=== PATIENT | male | born 1980 | race Caucasian/White ===

== ENCOUNTER 2019-04-20 17:57 | Emergency (ER) | payer OTHER ==
--- NOTE | 2019-04-20 18:10 | ED Physician Documentation ---
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 Patient's tetanus is unknown. Patient reports pain and bleeding, but no significant change in range of motion, strength, or sensation to hand. No other injuries. No other improving or worsening factors noted. Review of Systems Skin: reports: Laceration (s) Musculoskeletal: reports: Extremity pain. denies: Joint pain, Extremity swelling, Joint swelling PD PAST MEDICAL HISTORY - Past Medical History Past Medical History: No Musculoskeletal: Chronic back pain - Past Surgical History Past Surgical History: Yes HEENT: Tonsil/Adenoidectomy - Present Medications Home Medications: Ambulatory Orders Medication Instructions Recorded Confirmed No Known Home Medications 04/20/19 04/20/19 - Allergies Allergies/Adverse Reactions: Allergies Allergy/AdvReac Type Severity Reaction Status Date / Time No Known Drug Allergies Allergy Verified 04/20/19 18:06 - Social History Does the pt smoke?: Yes Smoking Status: Current every day smoker Does the pt drink ETOH?: No Does the pt have substance abuse?: No - Immunizations Immunizations are current?: No - POLST Patient has POLST: No PD ED PE NORMAL - Vitals Vital signs reviewed: Yes - General General: Alert and oriented X 3, No acute distress, Well developed/nourished - HEENT HEENT: Atraumatic, Moist mucous membranes - Cardiac Cardiac: Strong equal pulses - Respiratory Respiratory: No respiratory distress - Derm Derm: Normal color, Warm and dry, No rash, Other (Puncture wound to left palm below left index finger with active bleeding, but no retained foreign body other complication noted.) - Extremities Extremities: No deformity, No tenderness to palpate - Neuro Neuro: Alert and oriented X 3, No motor deficit, No sensory deficit - Psych Psych: Normal mood, Normal affect Results - Vitals Vitals: Vital Signs - 24 hr 04/20/19 18:05 Temperature 36.8 C Heart Rate 69 Respiratory 18 Rate Blood Pressure 140/83 H O2 Saturation 99 Oxygen O2 Source Room air Procedures - Laceration (location) Hand left Length in cm: 0.5 Wound type: Curved, Superficial Neurovascular status: Sensory intact, Motor intact, Vascular intact Tendon involvement: Tendon intact Anesthesia: LET Wound Preparation: Irrigated copiously NS Skin layer closure: Dermabond, Steri strips Other: Patient tolerated well, No complications, Neurovascular intact, Dressing applied, Tetanus booster given PD MEDICAL DECISION MAKING - ED course Complexity details: re-evaluated patient, considered differential, d/w patient ED course: Patient presenting with wound to left hand. Do not find evidence of bony abnormalities such as dislocation or fracture. Patient denies any concern for retained foreign body. Do not feel patient requires x-ray at this time. Let placed for anesthetic and wound clean and appropriately repaired. Do not find evidence to underlying structures including tendon. Tetanus updated. Discussed extensively wound care, restrictions, supportive cares with patient. Also discussed return precautions and appropriate follow-up. Patient voiced understanding and is comfortable with discharge plan. Departure - Departure Disposition: 01 Home, Self Care Clinical Impression: Laceration Condition: Good Instructions: ED Laceration All, ED Laceration Hand Follow-Up: your,doctor [Other] - Within 3 Days Comments: Please keep wound clean and dry using running water and soap only to clean. Do not submerge underwater. Do not need to apply anything topically. Please be gentle with her hands so as to not reopen the wound or cause infection. Please keep it covered appropriately to prevent infection. Please follow-up with primary care physician in next 2 to 3 days and return to ED sooner if experience wound opening, wound infection, or have other concerns. Forms: Activity restrictions
[2019-04-20] MEDS ORDERED: LIDOCAINE-EPINEPH-TETRACAINE 3 ML SYRINGE TOP STA (18:13)
[2019-04-20] MEDS ORDERED: TETANUS/DIPHTHERIA/PERTUSSIS 0.5 ML SYRINGE IM ONE (18:13)
[2019-04-20 20:02] VITALS: BP 130/95
== END 2019-04-20 20:00 | disposition home or self-care (01) ==
LOC: ED 17:57
DX: S61.432A Puncture wound without foreign body of left hand, initial encounter (principal); W27.0XXA Contact with workbench tool, initial encounter; Y93.89 Activity, other specified; Y99.0 Civilian activity done for income or pay; Z23 Encounter for immunization; F17.200 Nicotine dependence, unspecified, uncomplicated
CPT/HCPCS: 12001; 90471

== ENCOUNTER 2021-04-04 18:35 | Emergency (ER) | payer SELFPAY ==
[2021-04-04] MEDS ORDERED: MELOXICAM 7.5 MG TABLET PO STA (20:20)
[2021-04-04] MEDS ORDERED: methocarbamoL 500 MG TABLET PO STA (20:20)
--- NOTE | 2021-04-04 20:27 | ED Physician Documentation ---
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 He states that he frequently injures his back. He states over the past 3 to 4 days he has had increasing spasm in his back, worse with movement and standing. Better with rest. Has not taken anything for this. No loss of bowel or bladder control. Occasionally has mild numbness to the left low back. He states that a few weeks ago he stood up and hit his back on a ball valve. No IV drug use. No fevers. No loss of bowel or bladder control. Review of Systems Constitutional: denies: Fever, Chills GI: denies: Vomiting Skin: denies: Rash Musculoskeletal: denies: Neck pain Neurologic: denies: Focal weakness, Seizure, Confused PD PAST MEDICAL HISTORY - Past Medical History Past Medical History: Yes Cardiovascular: None Respiratory: None Neuro: None Endocrine/Autoimmune: None GI: None : None HEENT: None Psych: None Musculoskeletal: Chronic back pain Derm: None - Past Surgical History Past Surgical History: Yes HEENT: Tonsil/Adenoidectomy - Present Medications Home Medications: Ambulatory Orders Medication Instructions Recorded Confirmed Meloxicam [Mobic] 7.5 mg PO BID PRN #20 tablet 04/04/21 methocarbamoL [Robaxin] 500 mg PO Q6H PRN #20 tablet 04/04/21 - Allergies Allergies/Adverse Reactions: Allergies Allergy/AdvReac Type Severity Reaction Status Date / Time No Known Drug Allergies Allergy Verified 04/04/21 19:12 - Social History Does the pt smoke?: Yes Smoking Status: Current every day smoker Does the pt drink ETOH?: No Does the pt have substance abuse?: No - Immunizations Immunizations are current?: No - POLST Patient has POLST: No PD ED PE NORMAL - Vitals Vital signs reviewed: Yes - General General: Alert and oriented X 3, No acute distress, Well developed/nourished - HEENT HEENT: Atraumatic, PERRL, Moist mucous membranes - Neck Neck: Supple, no meningeal sign, No bony TTP - Cardiac Cardiac: RRR - Respiratory Respiratory: No respiratory distress, Clear bilaterally - Abdomen Abdomen: Soft, Non tender, Non distended - Back Back: No spinal TTP, Other (No midline tenderness to palpation or percussion. Mild paraspinal lumbar spasm.) - Derm Derm: Warm and dry - Extremities Extremities: No edema, No calf tenderness / cord - Neuro Neuro: Alert and oriented X 3, No motor deficit, No sensory deficit, Other (Normal bilateral lower extremity patellar and ankle jerk reflexes. Normal great toe extension bilaterally. no saddle anesthesia) - Psych Psych: Normal mood, Normal affect Results - Vitals Vitals: Vital Signs - 24 hr 04/04/21 04/04/21 04/04/21 20:52 21:10 21:51 Temperature 36.6 C Heart Rate 58 L Respiratory 16 17 18 Rate Blood Pressure 136/90 H O2 Saturation 100 Oxygen O2 Source Room air - Rads (name of study) Lumbar spine x-ray Radiology: Final report received, EMP read contemporaneously, See rad report (Lumbar spine without acute fracture. Mild lower lumbar spondylosis. Straightening of the lumbar lordosis which may be related to positioning and/or concurrent muscle spasm.) PD MEDICAL DECISION MAKING - ED course Complexity details: reviewed results, re-evaluated patient, considered differential (No cauda equina, no spinal epidural abscess, no fracture, no aortic dissection or evidence of aneursym rupture), d/w patient ED course: Patient with what appears to be back spasm. No acute findings on x-ray. We will place on muscle relaxants for home. Patient is well-appearing, nontoxic. Afebrile. No evidence of epidural abscess, cauda equina. Patient counseled regarding signs and symptoms for which I believe and urgent re-evaluation would be necessary. Patient with good understanding of and agreement to plan and is comfortable going home at this time This document was made in part using voice recognition software. While efforts are made to proofread this document, sound alike and grammatical errors may occur. Departure - Departure Disposition: 01 Home, Self Care Clinical Impression: Lumbar paraspinal muscle spasm Condition: Good Instructions: ED Spasm Back No Trauma Follow-Up: your,doctor in 1 week [Other] Prescriptions: Meloxicam [Mobic] 7.5 mg PO BID PRN #20 tablet PRN Reason: Pain methocarbamoL [Robaxin] 500 mg PO Q6H PRN #20 tablet PRN Reason: muscle spasm Comments: Do not drive or operate heavy machinery while taking the Robaxin. Return if you worsen. Continue gentle stretching at home. Discharge Date/Time: 04/04/21 22:08
--- NOTE | 2021-04-04 21:39 | XRAY Report ---
PROCEDURE: Lumbar Spine 2 View INDICATIONS: back pain TECHNIQUE: 2 views of the lumbar spine were acquired. COMPARISON: 07/28/2013 FINDINGS: Bones: 5 [id number] vertebrae are present. There is straightening of normal lumbar lordosis. M ild lower lumbar spondylosis. No acute vertebral body compression fractures. No suspicious bony lesi ons. Soft tissues: Overlying bowel gas pattern is normal. No suspicious soft tissue calcifications. IMPRESSION: Lumbar spine without acute fracture. Mild lower lumbar spondylosis. Straightening of lum bar lordosis which may be related to positioning and/or concurrent muscle spasms. Reviewed by: Martin Zheng MD on 04/04/2021 9:38 PM PDT Approved by: Martin Zheng MD on 04/04/2021 9:38 PM PDT Station ID: [id number]
[2021-04-04 21:52] VITALS: BP 136/90
== END 2021-04-04 22:08 | disposition home or self-care (01) ==
LOC: ED 18:35
DX: M62.830 Muscle spasm of back (principal); M47.816 Spondylosis without myelopathy or radiculopathy, lumbar region; F17.200 Nicotine dependence, unspecified, uncomplicated
CPT/HCPCS: 72100; 99283; 99284; A9270

== ENCOUNTER 2023-09-29 05:35 | Emergency (ER) | payer SELFPAY | END 2023-09-29 05:47 | disposition left against medical advice (07) | LOC: ED 05:35 | DX: Z53.21 Procedure and treatment not carried out due to patient leaving prior to being seen by health care provider (principal) ==